=== PATIENT | male | born 1990 | race Caucasian/White ===

== ENCOUNTER 2021-07-02 15:26 | Emergency (ER) | payer BC, SELFPAY ==
[2021-07-02 15:27] VITALS: BP 146/99; PULSE 89; RESP 16; TEMP 36.8; O2SAT 97; BMI 25.0
[2021-07-02 16:00] VITALS: BP 111/87; PULSE 74; RESP 14; O2SAT 98
[2021-07-02 16:31] VITALS: BP 138/67; PULSE 91; RESP 17; O2SAT 97
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
[2021-07-02 17:30] VITALS: BP 127/85; PULSE 82; RESP 20; TEMP 36.8; O2SAT 99
== END 2021-07-02 17:30 | disposition home or self-care (01) ==
PROVIDERS: Emergency Provider Emergency Medicine
DX: T22.211A Burn of second degree of right forearm, initial encounter (principal); T20.22XA Burn of second degree of lip(s), initial encounter; T24.209A Burn of second degree of unspecified site of unspecified lower limb, except ankle and foot, initial encounter; X08.8XXA Exposure to other specified smoke, fire and flames, initial encounter; Y92.018 Other place in single-family (private) house as the place of occurrence of the external cause; F17.210 Nicotine dependence, cigarettes, uncomplicated
CPT/HCPCS: 99281

== ENCOUNTER → 2021-12-02 16:00 | Outpatient (CLI) | payer OTHER, SELFPAY | PROVIDERS: Visit Provider Nurse Practitioner | DX: U07.1 COVID-19 (principal) | CPT/HCPCS: C9803; U0003; U0005 ==